=== PATIENT | female | born 1940 | race Two or more races ===

== ENCOUNTER 2024-05-07 09:23 | Outpatient (AMB) | payer OTHER, MEDICAID, SELFPAY ==
--- NOTE | 2024-05-07 09:39 | ORTHONT_ITS ---
Vital signs 05/07/24 09:47 Height 1.55 m Height Method Stated Weight 70.477 kg Weight Measurement Method Standing Scale BMI 29.3 BP 176/82 H Blood Pressure Source Automatic Cuff Blood Pressure Location Left Upper Arm Position Sitting Respiration 18 Pulse 54 L Pulse Source Monitor Temp 98.0 F Temp Source Temporal Artery Scan Pulse Oximetry (%) 98 Oxygen Delivery Method Room Air Med/Allergies Allergies & Medications Allergies No Known Allergies Allergy (Verified 04/01/24 08:10) Subjective Visit Visit for: follow up visit and knee Immunization / Flu Flu Vaccine in the Last 12 Months: Yes Date of most recent flu vaccination: 03/29/24 Flu Vaccine Exclusion Criteria: Already Received History of Present Illness Chief complaint: PT HERE IN OFFICE FOR 3 MONTH FOLLOW UP PT FELL 2 WEEKS AGO Date of injury / onset of symptoms: 2 WEEKS AGO PT FELL Patient is a 83yo female with bialteral leg and knee pain. There is associated numbness and tingling. It starts in the thigh and goes down her legs. She does walk hunched over according to her. She had an injection 3 months ago and reports that it worked quite well. She would like a repeat one today of both knees Personal History Occupation: RETIRED Red flag PMH: none Pain Pain level (0-10): 5 Pain duration: CONSTANT Pain location: inside (medial), outside (lateral), anterior and posterior Pain quality: burning Pain timing: increases with activity Associated signs & symptoms: weakness Ambulatory data Ambulatory device: none Treatments Improvement with previous injections: No Improvement with PT: No Improvement with NSAIDS: no Review of Systems Review of Systems: All systems negative unless otherwise noted in HPI. Exam Exam Patient is in no acute distress and is cooperative with the examination today. Breathing is nonlabored. In no respiratory distress. Bilateral extremities were evaluated and demonstrates sensation intact to light touch. Palpable pedal pulses are present. No significant edema is present. Bilateral hips were examined. The patient has no pain with log roll of the hips. Internal rotation to 30 degrees and external rotation to 30 degrees is painless. Negative FADIR. The left knee was examined. The left knee is in varus alignment. Range of motion from 0-115 degrees. Knee is stable to varus and valgus as well as AP translation with <5mm. Patient has a negative McMurrays. There is no pain with patell ofemoral compression and no crepitus noted. The knee is tender to palpation medially. The right knee was also examined. The right knee is in neutral alignment. Range of motion from 0-120 degrees. Knee is stable to varus and valgus as well as AP translation with <5mm. Patient has a negative McMurrays. There is no pain with patellofemoral compression and no crepitus noted. The knee is tender to palpation medially Weightbearing [facility] from [facility] reviewed. This demonstrates bilateral joint space narrowing of moderate severity. I also reviewed the MRI from [place] imaging. This demonstrates a pars defect as well as foraminal stenosis at L5-S1. Assessment and Plan Problem List (1) Spinal stenosis: Status: Acute (2) Bilateral primary osteoarthritis of knee: Status: Acute Plan: Patient is a pleasant 83-year-old female with bilateral knee pain and bilateral knee arthritis. It is of moderate severity. A lot of her pain does appear to be radicular in nature as well as it starts near the groin area and goes all the way down into her toes. She did get great relief with the last knee injections. We will thus recommend bilateral knee injections today. Recommend knee cortisone injections as patient would like to proceed with conservative treatment at this time. The risks and benefits of the procedure were reviewed with the patient and patient gave verbal consent to continue with the procedure. Procedure: performed by Dr. Spain Using sterile technique the Bilateral knees were thoroughly prepped with alcohol, and approximately 1 cc of Kenalog 40 mg/mL and 4 cc of 1% lidocaine was injected into each knee without resistance into the medial tibial femoral joint space. The patient tolerated the procedure. Advanced Care Planning Discussion Advance care planning discussed with:: patient Office Procedures GNS Level of Care Nursing/Assessment Patient Status: Established Patient Nursing Assessment/Reassesment: BP Monitoring, Medication Reconciliation, Update PMH in EMR and Vital Signs Coordination of Care: Complex Care and Chronic Disease 1-5, Consent,records obtained, informed consent, Lab and Imaging orders and Results/Orders obtained Special Needs: Language special needs Established Patient Charge Established Patient Point Assignment: 95 Established Patient Point Charge: EP Level 3 (80-115) Surgical Proc/IM SQ injection Major Surgical Procedure: Yes (BILATERAL KNEE INJECTION ) Medication Given Medication Given Medication Given: Yes Documented Dose Given: 8 Route: Infiitration Medication Given Medication Given Medication Given: Yes Documented Dose Given: 2 Office Meds Xylocaine 10 mg/mL (1 %) injection solution Performing Provider: Willie Spain MD Performing Location: [facility] Administered by: Willie Spain MD on 05/07/24 10:35 Dose Route Admin Location Dispensed Lot Number Expiration Date [facility] Attending Pathologist 40 mL Infiltration 40 mL [id number] [employer] triamcinolone acetonide 40 mg/mL suspension for injection Performing Provider: Willie Spain MD Performing Location: [facility] Administered by: Willie Spain MD on 05/07/24 10:35 Dose Route Admin Location Dispensed Lot Number Expiration Date [facility] Attending Pathologist 80 mg intra-articular 2 mL [id number] [employer] Past Medical History Past Medical History Have you ever been diagnosed with any of the following: Neurological Problems Cerebrovascular Accident (CVA): Yes (2021) Transient Ischemic Attacks (TIA): Yes (2021) Seizures: No Cardiology Problems Congestive Heart Failure: No Edema: No Hypertension: Yes Varicose Veins: Yes Respiratory Problems Chronic Obstructive Pulmonary Disease (COPD): No Smoking: No Smoking Cessation Counseling: No Smoking Exposure: No Tobacco Use: No Stomache/Intestinal Problems Hepatitis: No Gastroesophageal Reflux Disease: Yes Genital/Urinary Problems Renal Disease: No Reproductive Problems Breast Cancer: Yes (RIGHT RADICAL MASTECTOMY) Previous Pregnancies: Yes (X7) Musculoskeletal Problems Arthritis: Yes Head,Eye,Nose,Throat Problems Cataracts: Yes (stephan) Endocrine Problems Diabetes Mellitus Type 1: No Diabetes Mellitus Type 2: No Psychologic Problems Depression: Yes Other Problems Hospitalization: Yes Shingles: No Falls: No Blood Transfusions: Yes Blood Transfusion Reaction: No Anesthesia Reactions: No Organ Transplant: No Chemotherapy: Yes (1986) MRSA: No Chicken Pox: Yes Measles: Yes Cancer: Yes Surgical History Hysterectomy: Yes
[2024-05-07 09:47] VITALS: BP 176/82; PULSE 54; RESP 18; TEMP 36.7; O2SAT 98; BMI 29.3
== END 2024-05-07 10:09 | disposition home or self-care (01) ==
PROVIDERS: PCP Internal Medicine; Referring Provider Internal Medicine; Supervising Provider Orthopaedic Surgery Adult Reconstructive Orthopaedic Surgery; Visit Provider Orthopaedic Surgery Adult Reconstructive Orthopaedic Surgery
DX: M17.0 Bilateral primary osteoarthritis of knee (principal); M25.562 Pain in left knee; M25.561 Pain in right knee; M48.07 Spinal stenosis, lumbosacral region; I10 Essential (primary) hypertension; Z86.73 Personal history of transient ischemic attack (TIA), and cerebral infarction without residual deficits
CPT/HCPCS: 20610; 99213; J3301; J3490; G0463

== ENCOUNTER 2024-07-20 08:08 | Outpatient (AMB) | payer OTHER, MEDICAID, SELFPAY ==
[2024-07-20 08:24] VITALS: BP 184/81; PULSE 70; RESP 18; TEMP 36.3; O2SAT 97; BMI 29.7
--- NOTE | 2024-07-20 08:24 | PD.ORTHCLVIS ---
Vital signs 07/20/24 08:24 Height 1.55 m Height Method Stated Weight 71.384 kg Weight Measurement Method Standing Scale BMI 29.7 BP 184/81 H Blood Pressure Source Automatic Cuff Blood Pressure Location Right Upper Arm Position Sitting Respiration 18 Pulse 70 Pulse Source Monitor Temp 97.3 F Temp Source Temporal Artery Scan Pulse Oximetry (%) 97 Oxygen Delivery Method Room Air Med/Allergies Allergies & Medications Allergies No Known Allergies Allergy (Verified 07/20/24 08:24) Medication Reconciliation chlorthalidone 25 mg tablet 25 mg PO QDAY 12/12/23 [History Confirmed 07/20/24] duloxetine 20 mg capsule,delayed release 20 mg PO HS 12/12/23 [History Confirmed 07/20/24] lisinopril 30 mg tablet 30 mg PO BID 12/12/23 [History Confirmed 07/20/24] metoprolol succinate 50 mg tablet,extended release 24 hr 50 mg PO QDAY Hypertension 12/12/23 [History Confirmed 07/20/24] aspirin 81 mg tablet 81 mg PO QDAY 03/04/24 [History Confirmed 07/20/24] Held on 04/01/24. Instructions: Resume on 04/04/24. docusate sodium 100 mg capsule (Colace) 100 mg PO BID #40 caps 04/01/24 [Rx Confirmed 07/20/24] hydrocodone 5 mg-acetaminophen 325 mg tablet 1 tab PO Q6H PRN pain (scale score 7-10) #15 tabs 04/01/24 [Rx Confirmed 07/20/24] ibuprofen 600 mg tablet 600 mg PO Q8H PRN pain (scale score 4-6) #15 tabs 04/01/24 [Rx Confirmed 07/20/24] Exam Exam Patient is in no acute distress and is cooperative with the examination today. Breathing is nonlabored. In no respiratory distress. Bilateral extremities were evaluated and demonstrates sensation intact to light touch. Palpable pedal pulses are present. No significant edema is present. Bilateral hips were examined. The patient has no pain with log roll of the hips. Internal rotation to 30 degrees and external rotation to 30 degrees is painless. Negative FADIR. The left knee was examined. The left knee is in varus alignment. Range of motion from 0-115 degrees. Knee is stable to varus and valgus as well as AP translation with <5mm. Patient has a negative McMurrays. There is no pain with patellofemoral compression and no crepitus noted. The knee is tender to palpation medially. The right knee was also examined. The right knee is in neutral alignment. Range of motion from 0-120 degrees. Knee is stable to varus and valgus as well as AP translation with <5mm. Patient has a negative McMurrays. There is no pain with patellofemoral compression and no crepitus noted. The knee is tender to palpation medially Weightbearing x-rays from [facility] imaging reviewed. This demonstrates bilateral joint space narrowing of moderate severity. I also reviewed the MRI from [facility] imaging. This demonstrates a pars defect as well as foraminal stenosis at L5-S1. Assessment and Plan Problem List (1) Spinal stenosis: Status: Acute (2) Bilateral primary osteoarthritis of knee: Status: Acute Plan: Patient is a pleasant 83-year-old female with bilateral knee pain and bilateral knee arthritis. It is of moderate severity. She did not receive relief with the last injections. We will get repeat x-rays and discuss different treatment options. It seems like Her spine doctor wants her to get her knee surgery first. I will get new weightbearing films as I am not sure if she has not previously as it looks nonweightbearing. Advanced Care Planning Discussion Advance care planning discussed with:: patient Office Procedures GNS Level of Care Nursing/Assessment Patient Status: Established Patient Nursing Assessment/Reassesment: Medication Reconciliation, Update PMH in EMR and Vital Signs Coordination of Care: Complex Care and Chronic Disease 1-5, Education Complex Pt/Fam, Consent,records obtained, informed consent, Results/Orders obtained and Staff clarify orders Special Needs: Language special needs Established Patient Charge Established Patient Point Assignment: 95 Established Patient Point Charge: EP Level 3 (80-115) MA Intake Visit Data Collection New Patient or Established: Established Patient (seen at [facility] within 3 years) Reason for Visit:: F/U ON KNEE PAIN Seen by Clinical Staff ONLY (RN/MA): No Verbal consent obtained for Telemed visit?: No Instructional Services Specialist Required: No PCP or OBGYN visit in last 3 months: Yes Hx Now: No Do You Feel Safe at Home: Yes Authorities Contacted: N/A Questionairres Past Medical History Past Medical History Have you ever been diagnosed with any of the following: Neurological Problems Cerebrovascular Accident (CVA): Yes (2021) Transient Ischemic Attacks (TIA): Yes (2021) Seizures: No Cardiology Problems Congestive Heart Failure: No Edema: No Hypertension: Yes Varicose Veins: Yes Respiratory Problems Chronic Obstructive Pulmonary Disease (COPD): No Smoking: No Smoking Cessation Counseling: No Smoking Exposure: No Tobacco Use: No Stomache/Intestinal Problems Hepatitis: No Gastroesophageal Reflux Disease: Yes Genital/Urinary Problems Renal Disease: No Reproductive Problems Breast Cancer: Yes (RIGHT RADICAL MASTECTOMY) Previous Pregnancies: Yes (X7) Musculoskeletal Problems Arthritis: Yes Head,Eye,Nose,Throat Problems Cataracts: Yes (stephan) Endocrine Problems Diabetes Mellitus Type 1: No Diabetes Mellitus Type 2: No Psychologic Problems Depression: Yes Other Problems Hospitalization: Yes Shingles: No Falls: No Blood Transfusions: Yes Blood Transfusion Reaction: No Anesthesia Reactions: No Organ Transplant: No Chemotherapy: Yes (1986) MRSA: No Chicken Pox: Yes Measles: Yes Cancer: Yes Surgical History Hysterectomy: Yes Subjective Visit Visit for: follow up visit and knee Immunization / Flu Flu Vaccine in the Last 12 Months: No Flu Vaccine Exclusion Criteria: No Exclusion Criteria History of Present Illness Chief complaint: RIGHT KNEE PAIN Patient is a 83-year-old female with bilateral knee pain worse on the right. She has had multiple injections in the past. They initially worked but the last injections did not work. She went to see a spine surgeon for her radicular pain. The spine surgeon said that Needs to get her knee Surgery done first. I do not think the x-rays are weightbearing even though she insists on it. We will get repeat imaging. On the previous x-rays there are moderate arthritis Personal History Additional comments: SINCE LAST VISIT PATIENT HAS FALLEN THREE TIMES Pain Pain level (0-10): 6 Pain duration: CONSTANT Pain location: inside (medial), outside (lateral) and anterior Pain quality: sharp Pain timing: increases with activity Associated signs & symptoms: numbness, weakness and stiffness Ambulatory data Ambulatory device: none Treatments Improvement with previous injections: No Improvement with PT: No Improvement with NSAIDS: no Review of Systems Review of Systems: All systems negative unless otherwise noted in HPI.
--- NOTE | 2024-07-20 08:50 | XR_ITS ---
Examination: Bilateral AP knees Standing right lateral knee left lateral knee 2 views Bilateral axial knees single view Technique: Bilateral AP knees standing single view, bilateral PA knees standing flexion single view Standing right lateral knee left lateral knee 2 views Bilateral axial knees single view total 5 views Exam date and time: July 20, 2024 0904 hrs. Indications: Chronic bilateral knee pain Findings: Severe osteopenia Advanced right knee tricompartment osteoarthritis, most severe narrowing lateral joint space No fracture Moderate left knee tricompartment osteoarthritis, most pronounced narrowing medial joint space No fracture Impression: Advanced right knee tricompartment osteoarthritis Moderate left knee tricompartment osteoarthritis
== END 2024-07-20 08:52 | disposition home or self-care (01) ==
LOC: HODSRG 08:08
PROVIDERS: PCP Internal Medicine; Referring Provider Internal Medicine; Supervising Provider Orthopaedic Surgery Adult Reconstructive Orthopaedic Surgery; Visit Provider Orthopaedic Surgery Adult Reconstructive Orthopaedic Surgery
DX: M48.07 Spinal stenosis, lumbosacral region (principal); M17.0 Bilateral primary osteoarthritis of knee; M25.562 Pain in left knee; M25.561 Pain in right knee; I10 Essential (primary) hypertension; Z86.73 Personal history of transient ischemic attack (TIA), and cerebral infarction without residual deficits
CPT/HCPCS: 73564; 99213; G0463

== ENCOUNTER 2024-09-02 10:09 | Outpatient (AMB) | payer OTHER, MEDICAID, SELFPAY ==
[2024-09-02 10:29] VITALS: BP 175/76; PULSE 68; RESP 19; TEMP 36.1; O2SAT 95; BMI 29.5
--- NOTE | 2024-09-02 10:29 | ORTHONT_ITS ---
Vital signs 09/02/24 10:29 Height 1.55 m Height Method Stated Weight 71.016 kg Weight Measurement Method Standing Scale BMI 29.5 BP 175/76 H Blood Pressure Source Automatic Cuff Blood Pressure Location Right Upper Arm Position Sitting Respiration 19 Pulse 68 Pulse Source Monitor Temp 97.0 F Temp Source Temporal Artery Scan Pulse Oximetry (%) 95 Oxygen Delivery Method Room Air Med/Allergies Allergies & Medications Allergies No Known Allergies Allergy (Verified 09/02/24 10:30) Medication Reconciliation chlorthalidone 25 mg tablet 25 mg PO QDAY 12/12/23 [History Confirmed 09/02/24] duloxetine 20 mg capsule,delayed release 20 mg PO HS 12/12/23 [History Confirmed 09/02/24] lisinopril 30 mg tablet 30 mg PO BID 12/12/23 [History Confirmed 09/02/24] metoprolol succinate 50 mg tablet,extended release 24 hr 50 mg PO QDAY Hypertension 12/12/23 [History Confirmed 09/02/24] aspirin 81 mg tablet 81 mg PO QDAY 03/04/24 [History Confirmed 09/02/24] Held on 04/01/24. Instructions: Resume on 04/04/24. docusate sodium 100 mg capsule (Colace) 100 mg PO BID #40 caps 04/01/24 [Rx Confirmed 09/02/24] hydrocodone 5 mg-acetaminophen 325 mg tablet 1 tab PO Q6H PRN pain (scale score 7-10) #15 tabs 04/01/24 [Rx Confirmed 09/02/24] ibuprofen 600 mg tablet 600 mg PO Q8H PRN pain (scale score 4-6) #15 tabs 04/01/24 [Rx Confirmed 09/02/24] Exam Exam Patient is in no acute distress and is cooperative with the examination today. Breathing is nonlabored. In no respiratory distress. Bilateral extremities were evaluated and demonstrates sensation intact to light touch. Palpable pedal pulses are present. No significant edema is present. Bilateral hips were examined. The patient has no pain with log roll of the hips. Internal rotation to 30 degrees and external rotation to 30 degrees is painless. Negative FADIR. The left knee was examined. The left knee is in varus alignment. Range of motion from 0-115 degrees. Knee is stable to varus and valgus as well as AP translation with <5mm. Patient has a negative McMurrays. There is no pain with patellofemoral compression and no crepitus noted. The knee is tender to palpati on medially. The right knee was also examined. The right knee is in neutral alignment. Range of motion from 0-120 degrees. Knee is stable to varus and valgus as well as AP translation with <5mm. Patient has a negative McMurrays. There is no pain with patellofemoral compression and no crepitus noted. The knee is tender to palpation medially Weightbearing x-rays from [facility] imaging reviewed. This demonstrates bilateral joint space narrowing of moderate severity. There is complete obliteration of the lateral joint space Assessment and Plan Problem List (1) Spinal stenosis: Status: Acute (2) Bilateral primary osteoarthritis of knee: Status: Acute Plan: Patient is a pleasant 83-year-old female with bilateral knee pain and bilateral knee arthritis. She does have complete obliteration of the lateral joint space. I discussed with her there are different treatment options and she has failed conservative treatment. Some of the pain the possibly be coming from the spine but she did get good relief initially with a knee injection. We recommend either total knee replacement or continued conservative treatment. She Reports that the pain is affecting her quality life and wants a total knee replacement. I discussed that is a personal decision. He had a total knee replacement at age and that she reports she is miserable and wants to get it replaced The nature and purpose of the total knee replacement, alternative method(s) of treatment, the material risks involved, and the possibility of complications were fully explained to the patient. The patient does NOT have any of the following contraindications to TKA: - Active infection of the knee joint, OR - Active systemic bacteremia, OR - Active skin infection or open wound at surgical site, OR - Neuropathic arthritis, OR - Severe, rapidly progressive neurological disease, OR - Severe medical condition that makes risks of surgery outweigh the potential benefit The patient was told the most common risks and complications associated with a total knee replacement include, but are not limited to: blood clots in the leg, fatal pulmonary embolism, dislocation of the prosthesis, intraoperative and postoperative fractures of the femur or tibia, infection, failure of the prosthesis or grafting materials, complications from anesthesia, reactions to blood transfusions, postoperative leg length inequality, instability of the knee replacement, nerve damage or injury, vascular injury, delayed wound healing, infection, other injury or even . In addition, there are risks associated with anesthesia given during this operation. Also, the patient was told that after undergoing a total knee replacement there may still be persistent pain or disability. The patient was informed that the success of this operation in part depends upon the mechanical devices which are going to be implanted and that these devices can fail or malfunction, and may need to be repaired or replaced and there are no guarantees as to the longevity of this device or its parts and that it or its parts could fail prematurely. The patient was also notified that during the course of surgery, there may be a need to use bone graft from donors, and that any bone graft used will be carefully screened for communicable diseases, including AIDS, hepatitis, Lb-Creutzfeldt, or other diseases, but despite the screening procedures, there is a small chance that they could contract one of these diseases. Finally, the patient was asked to follow completely and fully with all advice and recommended treatments, and that recovery and ultimate outcome are affected by their compliance with recommended treatment. We discussed the risks, benefits and treatment alternatives, and the patient is interested in proceeding with surgery. We will try to set this up as expeditiously as possible. Advanced Care Planning Discussion Advance care planning discussed with:: patient Office Procedures GNS Level of Care Nursing/Assessment Patient Status: Established Patient Nursing Assessment/Reassesment: Medication Reconciliation, Update PMH in EMR and Vital Signs Coordination of Care: Complex Care and Chronic Disease 1-5, Education Complex Pt/Fam, Consent,records obtained, informed consent, Results/Orders obtained and Staff clarify orders Established Patient Charge Established Patient Point Assignment: 95 Established Patient Point Charge: EP Level 3 (80-115) MA Intake Visit Data Collection New Patient or Established: Established Patient (seen at [facility] within 3 years) Reason for Visit:: KNEE PAIN Seen by Clinical Staff ONLY (RN/MA): No Verbal consent obtained for Telemed visit?: No PCP or OBGYN visit in last 3 months: Yes Hx Now: No Do You Feel Safe at Home: Yes Authorities Contacted: N/A Questionairres Past Medical History Past Medical History Have you ever been diagnosed with any of the following: Neurological Problems Cerebrovascular Accident (CVA): Yes (2021) Transient Ischemic Attacks (TIA): Yes (2021) Seizures: No Cardiology Problems Congestive Heart Failure: No Edema: No Hypertension: Yes Varicose Veins: Yes Respiratory Problems Chronic Obstructive Pulmonary Disease (COPD): No Smoking: No Smoking Cessation Counseling: No Smoking Exposure: No Tobacco Use: No Stomache/Intestinal Problems Hepatitis: No Gastroesophageal Reflux Disease: Yes Genital/Urinary Problems Renal Disease: No Reproductive Problems Breast Cancer: Yes (RIGHT RADICAL MASTECTOMY) Previous Pregnancies: Yes (X7) Musculoskeletal Problems Arthritis: Yes Head,Eye,Nose,Throat Problems Cataracts: Yes (stephan) Endocrine Problems Diabetes Mellitus Type 1: No Diabetes Mellitus Type 2: No Psychologic Problems Depression: Yes Other Problems Hospitalization: Yes Shingles: No Falls: No Blood Transfusions: Yes Blood Transfusion Reaction: No Anesthesia Reactions: No Organ Transplant: No Chemotherapy: Yes (1986) MRSA: No Chicken Pox: Yes Measles: Yes Cancer: Yes Surgical History Hysterectomy: Yes Subjective Visit Visit for: follow up visit Immunization / Flu Flu Vaccine in the Last 12 Months: No Flu Vaccine Exclusion Criteria: No Exclusion Criteria History of Present Illness Chief complaint: RIGHT KNEE PAIN Patient is a 83-year-old female with bilateral knee pain worse on the right. She has had multiple injections in the past. They initially worked but the last injections did not work. She went to see a spine surgeon for her radicular pain. The spine surgeon said that Needs to get her knee Surgery done first. I do not think the x-rays are weightbearing even though she insists on it. We obtained new x-rays and there is [id number] arthritis of the lateral joint space. The patient is still unsure if she wants surgery Personal History Additional comments: SINCE LAST VISIT PATIENT HAS FALLEN THREE TIMES Pain Pain level (0-10): 7 Pain duration: ALL DAY Pain location: inside (medial) and anterior Pain quality: sharp, dull and aching Pain timing: increases with activity Associated signs & symptoms: numbness, weakness and stiffness Ambulatory data Ambulatory device: none Treatments Improvement with previous injections: No Improvement with PT: No Improvement with NSAIDS: no Review of Systems Review of Systems: All systems negative unless otherwise noted in HPI.
== END 2024-09-02 11:02 | disposition home or self-care (01) ==
PROVIDERS: PCP Internal Medicine; Referring Provider Internal Medicine; Supervising Provider Orthopaedic Surgery Adult Reconstructive Orthopaedic Surgery; Visit Provider Orthopaedic Surgery Adult Reconstructive Orthopaedic Surgery
DX: M25.562 Pain in left knee (principal); M25.561 Pain in right knee; M17.0 Bilateral primary osteoarthritis of knee; M48.00 Spinal stenosis, site unspecified; I10 Essential (primary) hypertension
CPT/HCPCS: 99213; G0463

== ENCOUNTER → 2024-09-30 | Outpatient (CLI) | payer OTHER, MEDICAID, SELFPAY ==
--- NOTE | 2024-09-30 08:00 | XR_ITS ---
Examination: CT right lower extremity, without contrast. 2-D sagittal reconstructions. 2-D coronal reconstructions. 3-D reconstructions. Date and time of exam:September 30, 2024 0747 hours INDICATIONS: Diagnosis unilateral primary osteoarthritis right knee right knee pain 5 years CTDI: vol (mGy):12.6 DLP: (mGycm):843 Technique: Multiple 1.25 mm axial sections of the right lower extremity without intravenous contrast have been obtained. 2-D sagittal and coronal reconstructions have been obtained. 3-D reconstructions have been obtained. Low dose protocols were performed. One or more of the following dose reduction techniques were used; automated exposure control, adjustment of the mA and/or KV according to patient size, use of iterative reconstruction technique. Findings: Prominent osteopenia Mild to moderate narrowing right hip joint No right hip fracture or hip dislocation Significant tricompartment osteoarthritis right knee most severe narrowing lateral joint space and lateral patellofemoral joint IMPRESSION: Significant tricompartment osteoarthritis right knee
== END | disposition home or self-care (01) ==
PROVIDERS: PCP Internal Medicine; Referring Provider Orthopaedic Surgery Adult Reconstructive Orthopaedic Surgery; Visit Provider Orthopaedic Surgery Adult Reconstructive Orthopaedic Surgery
DX: M17.11 Unilateral primary osteoarthritis, right knee (principal)
CPT/HCPCS: 73700

== ENCOUNTER → 2024-09-30 | Outpatient (CLI) | payer OTHER, MEDICAID, SELFPAY ==
[2024-09-30 09:35] LABS: Basophils % (Auto) 1 % (0-2.5); Eosinophils # (Auto) 0.1 Thou/mm3 (0.0-0.5); Eosinophils % (Auto) 2 % (0-10); Hematocrit 32.5 % (36.0-46.0); Hemoglobin 10.9 g/dL (12.0-16.0); Immature Granulocytes % (Auto) 0 % (0-0); Immature Granulocytes Auto 0.01 Thou/mm3 (0.00-0.00); Lymphocytes # (Auto) 1.1 Thou/mm3 (1.0-4.8); Lymphocytes % (Auto) 18 % (10-50); Mean Corpuscular HGB Conc 33.5 g/dl (31.0-37.0); Mean Corpuscular Hemoglobin 30.8 pg (25.0-35.0); Mean Corpuscular Volume 92 fL (80-100); Monocytes # (Auto) 0.4 Thou/mm3 (0.0-0.8); Monocytes % (Auto) 6 % (0-12); Neutrophils # (Auto) 4.2 Thou/mm3 (1.8-7.7); Neutrophils % (Auto) 73 % (37-80); Nucleated Red Blood Cell % 0 /100 WBC (0); Platelet Count 287 Thou/mm3 (140-440); RDW Standard Deviation 40.6 fL (36.4-46.3); Red Blood Count 3.54 Miln/mm3 (4.00-5.20); White Blood Count 5.7 Thou/mm3 (3.6-11.0)
--- NOTE | 2024-09-30 09:38 | EKG_ITS ---
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
[2024-09-30 09:56] LABS: Partial Thromboplastin Time 24.9 Seconds (22.0-36.0); Prothrombin Time 10.9 Seconds (9.0-12.2)
[2024-09-30 10:09] LABS: Glucose Estimated Average 120 mg/dL (80-131); Hemoglobin A1C 5.8 % Hgb (4.8-6.0)
[2024-09-30 10:31] LABS: Alanine Aminotransferase 10 U/L (10-49); Albumin, Serum 4.2 gm/dL (3.4-4.8); Albumin/Globulin Ratio 1.8 (1.2-2.2); Alkaline Phosphatase 70 U/L (46-116); Anion Gap 6 (7-16); Aspartate Amino Transferase 15 U/L (0-34); BUN/Creatinine Ratio 27 Ratio (12-20); Bilirubin,Total 0.6 mg/dL (0.3-1.2); Blood Urea Nitrogen 19 mg/dL (9-23); Calcium 8.8 mg/dL (8.3-10.6); Calcium (Corrected) 8.8 mg/dL (8.5-10.1); Carbon Dioxide 28.2 mMol/L (20.0-31.0); Chloride 103 mMol/L (98-107); Creatinine (Component) 0.7 mg/dL (0.6-1.3); Globulin 2.4 gm/dL (2.3-3.5); Glucose 100 mg/dL (74-106); Osmolality,Calculated 276 (275-295); Potassium 4.7 mMol/L (3.4-5.1); Sodium 137 mMol/L (136-145); Total Protein 6.6 gm/dL (5.7-8.2); eGFR > 60 See Note
== END | disposition home or self-care (01) ==
PROVIDERS: PCP Internal Medicine; Referring Provider Orthopaedic Surgery Adult Reconstructive Orthopaedic Surgery; Visit Provider Orthopaedic Surgery Adult Reconstructive Orthopaedic Surgery
DX: Z01.810 Encounter for preprocedural cardiovascular examination (principal); I10 Essential (primary) hypertension; R73.03 Prediabetes
CPT/HCPCS: 36415; 80053; 83036; 85025; 85610; 85730; 93005

== ENCOUNTER 2024-10-08 10:57 | Outpatient (AMB) | payer OTHER, MEDICAID, SELFPAY ==
--- NOTE | 2024-10-08 11:41 | ORTHONT_ITS ---
Vital signs 10/08/24 11:42 Height 1.55 m Height Method Stated Weight 71.327 kg Weight Measurement Method Standing Scale BMI 29.7 BP 173/72 H Blood Pressure Source Automatic Cuff Blood Pressure Location Left Upper Arm Position Sitting Respiration 19 Pulse 73 Pulse Source Monitor Temp 96.9 F Temp Source Temporal Artery Scan Pulse Oximetry (%) 97 Oxygen Delivery Method Room Air Med/Allergies Allergies & Medications Allergies No Known Allergies Allergy (Verified 10/08/24 11:43) Medication Reconciliation chlorthalidone 25 mg tablet 25 mg PO QDAY 12/12/23 [History Confirmed 10/08/24] duloxetine 20 mg capsule,delayed release 20 mg PO HS 12/12/23 [History Confirmed 10/08/24] lisinopril 30 mg tablet 30 mg PO BID 12/12/23 [History Confirmed 10/08/24] metoprolol succinate 50 mg tablet,extended release 24 hr 50 mg PO QDAY Hypertension 12/12/23 [History Confirmed 10/08/24] aspirin 81 mg tablet 81 mg PO QDAY 03/04/24 [History Confirmed 10/08/24] Held on 04/01/24. Instructions: Resume on 04/04/24. Exam Exam Patient is in no acute distress and is cooperative with the examination today. Breathing is nonlabored. In no respiratory distress. Bilateral extremities were evaluated and demonstrates sensation intact to light touch. Palpable pedal pulses are present. No significant edema is present. Bilateral hips were examined. The patient has no pain with log roll of the hips. Internal rotation to 30 degrees and external rotation to 30 degrees is painless. Negative FADIR. The left knee was examined. The left knee is in varus alignment. Range of motion from 0-115 degrees. Knee is stable to varus and valgus as well as AP translation with <5mm. Patient has a negative McMurrays. There is no pain with patellofemo ral compression and no crepitus noted. The knee is tender to palpation medially. The right knee was also examined. The right knee is in neutral alignment. Range of motion from 0-120 degrees. Knee is stable to varus and valgus as well as AP translation with <5mm. Patient has a negative McMurrays. There is no pain with patellofemoral compression and no crepitus noted. The knee is tender to palpation medially Weightbearing x-rays from [facility] imaging reviewed. This demonstrates bilateral joint space narrowing of moderate severity. There is complete obliteration of the lateral joint space Assessment and Plan Problem List (1) Spinal stenosis: Status: Acute (2) Bilateral primary osteoarthritis of knee: Status: Acute Plan: Patient is a pleasant 83-year-old female with bilateral knee pain and bilateral knee arthritis. She does have complete obliteration of the lateral joint space. I discussed with her there are different treatment options and she has failed conservative treatment. Some of the pain the possibly be coming from the spine but she did get good relief initially with a knee injection. We recommend either total knee replacement or continued conservative treatment. She Reports that the pain is affecting her quality life and wants a total knee replacement. I discussed that is a personal decision. He had a total knee replacement at age and that she reports she is miserable and wants to get it replaced The nature and purpose of the total knee replacement, alternative method(s) of treatment, the material risks involved, and the possibility of complications were fully explained to the patient. The patient does NOT have any of the following contraindications to TKA: - Active infection of the knee joint, OR - Active systemic bacteremia, OR - Active skin infection or open wound at surgical site, OR - Neuropathic arthritis, OR - Severe, rapidly progressive neurological disease, OR - Severe medical condition that makes risks of surgery outweigh the potential benefit The patient was told the most common risks and complications associated with a total knee replacement include, but are not limited to: blood clots in the leg, fatal pulmonary embolism, dislocation of the prosthesis, intraoperative and postoperative fractures of the femur or tibia, infection, failure of the prosthesis or grafting materials, complications from anesthesia, reactions to blood transfusions, postoperative leg length inequality, instability of the knee replacement, nerve damage or injury, vascular injury, delayed wound healing, infection, other injury or even . In addition, there are risks associated with anesthesia given during this operation. Also, the patient was told that after undergoing a total knee replacement there may still be persistent pain or disability. The patient was informed that the success of this operation in part depends upon the mechanical devices which are going to be implanted and that these devices can fail or malfunction, and may need to be repaired or replaced and there are no guarantees as to the longevity of this device or its parts and that it or its parts could fail prematurely. The patient was also notified that during the course of surgery, there may be a need to use bone graft from donors, and that any bone graft used will be carefully screened for communicable diseases, including AIDS, hepatitis, Lb-Creutzfeldt, or other diseases, but despite the screening procedures, there is a small chance that they could contract one of these diseases. Finally, the patient was asked to follow completely and fully with all advice and recommended treatments, and that recovery and ultimate outcome are affected by their compliance with recommended treatment. We discussed the risks, benefits and treatment alternatives, and the patient is interested in proceeding with surgery. We will try to set this up as expeditiously as possible. Advanced Care Planning Discussion Advance care planning discussed with:: patient and child Office Procedures GNS Level of Care Nursing/Assessment Patient Status: Established Patient Nursing Assessment/Reassesment: Medication Reconciliation, Update PMH in EMR and Vital Signs Coordination of Care: Complex Care and Chronic Disease 1-5, Education Complex Pt/Fam, Consent,records obtained, informed consent, Results/Orders obtained and Staff clarify orders Established Patient Charge Established Patient Point Assignment: 95 Established Patient Point Charge: EP Level 3 (80-115) MA Intake Visit Data Collection New Patient or Established: Established Patient (seen at [facility] within 3 years) Reason for Visit:: PRE OP R TKA Seen by Clinical Staff ONLY (RN/MA): No PCP or OBGYN visit in last 3 months: Yes Hx Now: No Do You Feel Safe at Home: Yes Authorities Contacted: N/A Questionairres Past Medical History Past Medical History Have you ever been diagnosed with any of the following: Neurological Problems Cerebrovascular Accident (CVA): Yes (2021) Transient Ischemic Attacks (TIA): Yes (2021) Seizures: No Cardiology Problems Congestive Heart Failure: No Edema: No Hypertension: Yes Varicose Veins: Yes Respiratory Problems Chronic Obstructive Pulmonary Disease (COPD): No Smoking: No Smoking Cessation Counseling: No Smoking Exposure: No Tobacco Use: No Stomache/Intestinal Problems Hepatitis: No Gall Bladder Disease: Yes Gastroesophageal Reflux Disease: Yes Genital/Urinary Problems Renal Disease: No Reproductive Problems Breast Cancer: Yes (RIGHT RADICAL MASTECTOMY) Previous Pregnancies: Yes (X7) Musculoskeletal Problems Arthritis: Yes Head,Eye,Nose,Throat Problems Cataracts: Yes (stephan) Endocrine Problems Diabetes Mellitus Type 1: No Diabetes Mellitus Type 2: No Psychologic Problems Depression: Yes Other Problems Hospitalization: Yes Shingles: No Falls: Yes Blood Transfusions: Yes Blood Transfusion Reaction: No Anesthesia Reactions: No Organ Transplant: No Chemotherapy: Yes (1986) MRSA: No Chicken Pox: Yes Measles: Yes Cancer: Yes Surgical History Hysterectomy: Yes Subjective Visit Visit for: follow up visit and knee Immunization / Flu Flu Vaccine in the Last 12 Months: No Flu Vaccine Exclusion Criteria: No Exclusion Criteria History of Present Illness Chief complaint: RIGHT KNEE PAIN Patient is a 83-year-old female with bilateral knee pain worse on the right. She has had multiple injections in the past. They initially worked but the last injections did not work. She went to see a spine surgeon for her radicular pain. The spine surgeon said that Needs to get her knee Surgery done first. I do not think the x-rays are weightbearing even though she insists on it. We obtained new x-rays and there is [id number] arthritis of the lateral joint space. Personal History Additional comments: SINCE LAST VISIT PATIENT HAS FALLEN THREE TIMES Pain Pain level (0-10): 6 Pain duration: ALL DAY Pain location: inside (medial) and anterior Pain quality: dull and aching Pain timing: increases with activity Associated signs & symptoms: none Ambulatory data Ambulatory device: none Treatments Improvement with previous injections: No Improvement with PT: No Improvement with NSAIDS: no Review of Systems Review of Systems: All systems negative unless otherwise noted in HPI.
[2024-10-08 11:42] VITALS: BP 173/72; PULSE 73; RESP 19; TEMP 36.1; O2SAT 97; BMI 29.7
== END 2024-10-08 12:00 | disposition home or self-care (01) ==
LOC: HODSRG 10:57
PROVIDERS: PCP Internal Medicine; Referring Provider Internal Medicine; Supervising Provider Orthopaedic Surgery Adult Reconstructive Orthopaedic Surgery; Visit Provider Orthopaedic Surgery Adult Reconstructive Orthopaedic Surgery
DX: M17.0 Bilateral primary osteoarthritis of knee (principal); M48.00 Spinal stenosis, site unspecified; M25.562 Pain in left knee; M25.561 Pain in right knee; I10 Essential (primary) hypertension; Z86.73 Personal history of transient ischemic attack (TIA), and cerebral infarction without residual deficits; K21.9 Gastro-esophageal reflux disease without esophagitis
CPT/HCPCS: 99213; G0463

== ENCOUNTER 2024-10-11 08:15 | Day surgery (SDC) | payer OTHER, MEDICAID, SELFPAY ==
[2024-10-08 09:17] VITALS: BMI 30.7
[2024-10-08 10:54] LABS: Basophils # (Auto) 0.1 Thou/mm3 (0.0-0.2); Basophils % (Auto) 1 % (0-2.5); Eosinophils # (Auto) 0.2 Thou/mm3 (0.0-0.5); Eosinophils % (Auto) 4 % (0-10); Immature Granulocytes % (Auto) 0 % (0-0); Immature Granulocytes Auto 0.02 Thou/mm3 (0.00-0.00); Lymphocytes # (Auto) 1.2 Thou/mm3 (1.0-4.8); Lymphocytes % (Auto) 23 % (10-50); Mean Corpuscular HGB Conc 34.4 g/dl (31.0-37.0); Mean Corpuscular Hemoglobin 30.8 pg (25.0-35.0); Mean Corpuscular Volume 90 fL (80-100); Monocytes # (Auto) 0.5 Thou/mm3 (0.0-0.8); Monocytes % (Auto) 8 % (0-12); Neutrophils # (Auto) 3.5 Thou/mm3 (1.8-7.7); Neutrophils % (Auto) 64 % (37-80); Nucleated Red Blood Cell % 0 /100 WBC (0); Platelet Count 282 Thou/mm3 (140-440); RDW Standard Deviation 40.5 fL (36.4-46.3); Red Blood Count 3.57 Miln/mm3 (4.00-5.20); White Blood Count 5.5 Thou/mm3 (3.6-11.0)
[2024-10-08 11:02] LABS: Partial Thromboplastin Time 25.1 Seconds (22.0-36.0); Prothrombin Time 10.7 Seconds (9.0-12.2)
[2024-10-08 11:18] LABS: Alanine Aminotransferase 8 U/L (10-49); Albumin, Serum 4.2 gm/dL (3.4-4.8); Albumin/Globulin Ratio 1.7 (1.2-2.2); Alkaline Phosphatase 74 U/L (46-116); Anion Gap 9 (7-16); Aspartate Amino Transferase 17 U/L (0-34); BUN/Creatinine Ratio 35 Ratio (12-20); Bilirubin,Total 0.4 mg/dL (0.3-1.2); Blood Urea Nitrogen 21 mg/dL (9-23); Calcium 9.1 mg/dL (8.3-10.6); Calcium (Corrected) 9.1 mg/dL (8.5-10.1); Carbon Dioxide 28.4 mMol/L (20.0-31.0); Chloride 99 mMol/L (98-107); Creatinine (Component) 0.6 mg/dL (0.6-1.3); Estimated Creatinine Clearance 61.6 mL/min (>60); Globulin 2.5 gm/dL (2.3-3.5); Glucose 99 mg/dL (74-106); Osmolality,Calculated 274 (275-295); Potassium 4.5 mMol/L (3.4-5.1); Sodium 136 mMol/L (136-145); Total Protein 6.7 gm/dL (5.7-8.2); eGFR > 60 See Note
[2024-10-11] VITALS (19 sets, daily range): BP systolic 119–179; BP diastolic 61–77; PULSE 63–77; RESP 10–20; TEMP 36.2–36.7; O2SAT 93–100; BMI 30.3; BMI 13.0
[2024-10-11] MEDS: RINGERS LACTATED 1000 ML 1,000 ML 20 ML IV (09:49)
[2024-10-11] MEDS: ACETAMINOPHEN 325 MG TABLET 650 MG PO (09:50)
[2024-10-11] MEDS: MELOXICAM 7.5 MG TABLET PO (09:51)
[2024-10-11] MEDS: PREGABALIN 75 MG CAPSULE PO (09:51)
--- NOTE | 2024-10-11 10:30 | SUR.PREOP ---
Patient expressed gratitude for prayer before their procedure.
--- NOTE | 2024-10-11 12:50 | ESOP_ITS ---
Date of Procedure 10/11/24 Pre Op Diagnosis right knee osteoarthritis Post Op Diagnosis right knee osteoarthritis Procedure right total knee replacement sweetie Findings full thickness cartilage loss and osteophytes Procedure Description Indication: The patient is a 83 year old who has a long history of right knee pain. X-rays show degenerative arthritis involving the knee. Over the past several years the patient has had increasing pain, progressive limitation in function. He has failed conservative measures including activity modification, physical therapy, injections, anti-inflammatories, and assistive devices. After a lengthy discussion of the risks and benefits, the patient presents now for total knee replacement. The nature and purpose of the total knee replacement, alternative method(s) of treatment, the material risks involved, and the possibility of complications were fully explained to the patient. The patient was told the most common risks and complications associated with a total knee replacement include, but are not limited to blood clots in the leg, fatal pulmonary embolism, dislocation of the prosthesis, intraoperative and postoperative fractures of the femur or tibia, infection, failure of the prosthesis or grafting materials, complications from anesthesia, reactions to blood transfusions, postoperative leg length inequality, instability of the knee replacement, nerve damage or injury, vascular injury, delayed wound healing, infections, other injury or even . In addition, there are risks associated with anesthesia given during this operation, temporary or permanent numbness on the skin lateral to the incision can be a complication unique to total knee surgery, and kneeling can be painful after knee replacement surgery. Also, the patient was told that after undergoing a total knee replacement there may still be pain or disability. We discussed with the patient that we will be using a robot-assisted technology. We discussed that there is a possibility of converting to manual instrumentation. The patient was informed that the success of this operation in part depends upon the mechanical devices which are going to be implanted and that these devices can fail or malfunction, and may need to be repaired or replaced and there are no guarantees as to the longevity of this device or its part and that it or its parts could fail prematurely. Finally, the patient was asked to follow completely and fully with all advice and recommended treatments, and that recovery and ultimate outcome are affected by their compliance with recommended treatment. Surgical technique: Patient was marked and consented in the pre-operative area. The patient was brought to the operating room and placed on the operating table in a supine position. Prior to positioning, a timeout procedure was performed between the surgeon, the anesthesiologist, and the nursing staff where the patient and the operative side were identified and confirmed. After adequate general anesthetic was obtained, the right lower extremity was prepped and draped in the usual sterile fashion. A weight based dose of Cefazolin were administered within 1 hour prior to incision. The robot was preregistered and calirated before the incision. The extremity was exsanguinated with an esmarch badge and tourniquet inflated to 250mmHg. A midline incision was made. A median parapatellar arthrotomy was made. The patella was subluxed laterally. A medial release was performed to expose the medial tibia. His femoral and tibial pins were placed through an intra incisional manner for both cases. Every effort was made to ensure that the distalmost aspect of the pin was hung in the second cortex. The arrays were then tightened several times to ensure that it was fixed for the remainder of the case. Both femoral and tibial checkpoints were then placed. We then went through the registration process of the bone. We then assessed the knee deformity and attempted to correct it. We also used the robot to aid in judging laxity in both extension and flexion. Final based on laxity and alignment we changed the preoperative assessment to obtain proper proper implant positioning and to correct deformity. Attention was then placed to the tibia. We made a tibial cut using the robot ensuring that both the MCL and the patella tendon were protected with retractors. We then went to the femur and made the posterior cut followed by the anterior cut and the anterior chamfer. The bone was then removed and we made a distal femur cut and a posterior chamfer cut. We verified all cuts. A trial reduction was performed with a size 3 femoral component and a size 3 keeled tibial component. The patella tracked centrally, and no lateral retinacular release was necessary. The trial implants were removed. The arrays, pins, and checkpoints were all removed. We performed a verification that all pins were removed. The cut bone surfaces were lavaged. A size 3 right femoral component, a size 3 keeled tibial component were impacted into position using 2 bags of palacos. The knee was placed in extension until the cement hardened. The knee was felt to be well balanced in the sagittal and coronal plane. The final 3x10 mm cruciate- substituting articular insert was impacted into the tibial tray. The knee was brought out to full extension, flexed up to 120 degrees. It was stable to varus and valgus stress and appropriately balanced in flexion and extension. The wounds were copiously irrigated following deflation of tourniquet. The medial retinaculum was reapproximated with #1 vicryl and quill. The subcutaneous tissues were closed with 0 and 2-0 interrupted Vicryl. The skin was closed with 3-0 Monofilament V loc suture. A sterile dressing was applied. The patient was transferred to a bed and brought to recovery in stable condition. The patient tolerated the procedure well. There were no intraoperative complications. Sponge and needle counts were correct times 2. As the attending surgeon, I attest I was present and performed the entire operation. Grafts/Implants Size 3 CR Femur Size 3 Tibia 10mm poly CS 2 bags of palacos Anesthesia GETA Implants deann Pathology / specimen None Pathology comment: none Estimated Blood Loss 150 Surgeon Willie Spain MD Surgical Staff Operation Date: 10/11/24 12:15 Case Staff Anesthesiologist: Shiva Mckinnon RNfleet maintenance foreman: Carina Munoz
--- NOTE | 2024-10-11 12:54 | XR_ITS ---
Examination: Right knee 2 views Technique one AP lateral right knee 2 views Date and time: October 11, 2024 1327 hours INDICATIONS: Postop knee replacement FINDINGS: Total right knee arthroplasty. Satisfactory alignment. No fracture IMPRESSION: Total right knee arthroplasty with satisfactory alignment
--- NOTE | 2024-10-11 13:19 | SUR.PHASEI ---
1319: Pt. wakes to name, then drifts back to sleep, vitals stable, breathing unlabored, no signs of distress, dressing to right knee CDI, no active bleed noted, bilateral dorsalis pedis pulses strong and regular, cap refill to bilateral feet less than 3 seconds, report received from MD Pratibha Ling RN.
[2024-10-11] MEDS: fentaNYL CIT INJ 50 mCg/ML AMP 2ML IVP ×2 (13:56→15:22)
[2024-10-11] MEDS: HYDROmorphone INJ 2 MG/ML VIAL 0.4 MG IVP (14:44)
[2024-10-11] MEDS: ACETAMINOPHEN IVPB 1,000 MG/100 ML VIAL 250 MG IV (16:18)
--- NOTE | 2024-10-11 16:30 | SUR.PHASEII ---
pt awake, alert, able to follow commands, breathing unlabored, dressing to right lower extremity clean, dry, and intact, report from Elaine WHITEHEAD
[2024-10-11] MEDS: ONDANSETRON INJ 2 MG/ML INJ 2 ML 4 MG IVP (16:58)
--- NOTE | 2024-10-11 17:00 | SUR.PHASEII ---
pt dizzy when trying to sit up for physical therapy
--- NOTE | 2024-10-11 17:47 | SUR.PHASEII ---
pt sleepy with eyes closed, daughter at bedside
--- NOTE | 2024-10-11 18:45 | SUR.PHASEII ---
pt awake, alert, able to follow commands, breathing unlabored, dressing to right lower extremity clean, dry, and intact, VS stable, pt on room air, pt able to transfer to wheelchair without dizziness, pt able to tolerate oral fluids without difficulty swallowing or n/v, discharge instructions given by previous nurse Elaine WHITEHEAD- teaching reinforced with pt and daughter who verbalize understanding, pt discharged via wheelchair with all belongings and copies of discharge paperwork.
--- NOTE | 2024-10-14 15:12 | PD.ANESPROG ---
Documentation for date of: 10/14/24 POST ANESTHESIA NOTE: Patient had GETA and R adductor canal block for R TKA on 10/11/24. Intra-op, spinal was attempted but aborted after multiple attempts failed to reach intrathecal space given her scoliosis. I just called her number, answered by her daughter who was present with her at the time of surgery, and she reported patient having nausea still but limited solid intake but she endorsed she is doing well drinking liquids and she denied post op vomiting. She also reported patient taking Oxycodone post op. She also reported patient feeling dizzy only when she stands up. She denied patient having post op headache. She didn't report any other issues and reported she is otherwise doing well. I educated her sometimes nausea from anesthesia can last multiple days post op but it's less likely in elderly and could also be from medications especially narcotics. I encouraged her to continue drinking fluids to stay hydrated as her dizziness could be from dehydration. She understood and had no further questions for me and was thankful. Shiva Mckinnon MD Anesthesia Progress Note Progress Note Most recent Vital Signs: Last Vital Signs Temp 97.9 F 10/11/24 18:30 Pulse 73 10/11/24 18:30 Resp 16 10/11/24 18:30 BP 149/77 H 10/11/24 18:30 Pulse Ox 98 10/11/24 18:30 O2 Flow Rate 2 10/11/24 15:30
== END 2024-10-11 18:45 | disposition home health service (06) ==
PROVIDERS: Anesthesiology; PCP Internal Medicine; Referring Provider Orthopaedic Surgery Adult Reconstructive Orthopaedic Surgery; Visit Provider Orthopaedic Surgery Adult Reconstructive Orthopaedic Surgery
PROC: (CPT 27447; principal; 2024-10-11 12:00)
DX: M17.11 Unilateral primary osteoarthritis, right knee (principal); M25.761 Osteophyte, right knee
CPT/HCPCS: 27447; 20985; 36415; 73560; 80053; 85025; 85610; 85730; 97162; A4217; C1713; C1776; J0131; J0690; J1100; J1171; J2250; J2405; J2704; J2795; J3010; J3490; J7030; J7120; J7999; A4648; A4649; A9270; J1805

== ENCOUNTER 2024-10-26 10:10 | Outpatient (AMB) | payer OTHER, MEDICAID, SELFPAY ==
[2024-10-26 10:28] VITALS: BP 172/72; PULSE 61; RESP 18; TEMP 36.1; O2SAT 95; BMI 30.5
--- NOTE | 2024-10-26 10:28 | PD.ORTHCLVIS ---
Vital signs 10/26/24 10:28 Height 1.52 m Height Method Stated Weight 70.534 kg Weight Measurement Method Standing Scale BMI 30.5 BP 172/72 H Blood Pressure Source Automatic Cuff Blood Pressure Location Right Upper Arm Position Sitting Respiration 18 Pulse 61 Pulse Source Monitor Temp 97.0 F Temp Source Temporal Artery Scan Pulse Oximetry (%) 95 Oxygen Delivery Method Room Air Med/Allergies Allergies & Medications Allergies No Known Allergies Allergy (Verified 10/26/24 10:30) Medication Reconciliation chlorthalidone 25 mg tablet 25 mg PO QDAY 12/12/23 [History Confirmed 10/26/24] duloxetine 20 mg capsule,delayed release 20 mg PO HS 12/12/23 [History Confirmed 10/26/24] lisinopril 30 mg tablet 30 mg PO BID 12/12/23 [History Confirmed 10/26/24] metoprolol succinate 50 mg tablet,extended release 24 hr 50 mg PO QDAY Hypertension 12/12/23 [History Confirmed 10/26/24] aspirin 81 mg tablet 81 mg PO QDAY 03/04/24 [History Confirmed 10/26/24] acetaminophen 500 mg tablet (Acetaminophen Extra Strength) 1,000 mg (2 x 500 mg) PO Q6H PRN pain #90 tabs 10/11/24 [Rx Confirmed 10/26/24] aspirin 81 mg tablet,delayed release 81 mg PO BID #60 tabs 10/11/24 [Rx Confirmed 10/26/24] doxycycline hyclate 100 mg tablet 100 mg PO BID #14 tabs 10/11/24 [Rx Confirmed 10/26/24] gabapentin 300 mg capsule 300 mg PO .qhs #30 caps 10/11/24 [Rx Confirmed 10/26/24] sennosides 8.6 mg-docusate sodium 50 mg tablet (Senna-S) 1 tab-cap PO QDAY #30 tabs 10/11/24 [Rx Confirmed 10/26/24] ondansetron 4 mg disintegrating tablet 4 mg PO Q6H PRN nausea and vomiting #10 tabs 10/14/24 [Rx Confirmed 10/26/24] oxycodone 5 mg tablet 5 mg PO Q6H PRN pain #28 tabs 10/21/24 [Rx Confirmed 10/26/24] Exam Exam Patient is in no acute distress and is cooperative with the examination today. Breathing is nonlabored. In no respiratory distress. Bilateral extremities were evaluated and demonstrates sensation intact to light touch. Palpable pedal pulses are present. No significant edema is present. Bilateral hips were examined. The patient has no pain with log roll of the hips. Internal rotation to 30 degrees and external rotation to 30 degrees is painless. Negative FADIR. The left knee was examined. The left knee is in varus alignment. Range of motion from 0-115 degrees. Knee is stable to varus and valgus as well as AP translation with <5mm. Patient has a negative McMurrays. There is no pain with patellofemoral compression and no crepitus noted. The knee is tender to palpation medially. Right knee incision is clean dry and intact. She is walking with a walker Assessment and Plan Problem List (1) Spinal stenosis: Status: Acute (2) Bilateral primary osteoarthritis of knee: Status: Acute Plan: Patient is a pleasant 83-year-old female with bilateral knee pain and bilateral knee arthritis. She does have complete obliteration of the lateral joint space. Her knee looks great status post right total knee replacement. Will see her in 4 weeks with routine x-rays. She should continue work with physical therapy Advanced Care Planning Discussion Advance care planning discussed with:: patient and child Office Procedures GNS Level of Care Nursing/Assessment Patient Status: Established Patient Nursing Assessment/Reassesment: Medication Reconciliation, Update PMH in EMR and Vital Signs Coordination of Care: Complex Care and Chronic Disease 1-5, Education Complex Pt/Fam, Consent,records obtained, informed consent, Lab and Imaging orders, Results/Orders obtained and Staff clarify orders Special Needs: Language special needs Established Patient Charge Established Patient Point Assignment: 110 Established Patient Point Charge: EP Level 3 (80-115) MA Intake Visit Data Collection New Patient or Established: Established Patient (seen at [facility] within 3 years) Reason for Visit:: 2 WEEK POST OP Seen by Clinical Staff ONLY (RN/MA): No Verbal consent obtained for Telemed visit?: No Customer Engagement Specialist Required: No PCP or OBGYN visit in last 3 months: Yes Hx Now: No Do You Feel Safe at Home: Yes Authorities Contacted: N/A Questionairres Past Medical History Past Medical History Have you ever been diagnosed with any of the following: Neurological Problems Cerebrovascular Accident (CVA): Yes (2021) Transient Ischemic Attacks (TIA): Yes (2021) Seizures: No Cardiology Problems Congestive Heart Failure: No Edema: No Hypertension: Yes Varicose Veins: Yes Respiratory Problems Chronic Obstructive Pulmonary Disease (COPD): No Smoking: No Smoking Cessation Counseling: No Smoking Exposure: No Tobacco Use: No Stomache/Intestinal Problems Hepatitis: No Gall Bladder Disease: Yes Gastroesophageal Reflux Disease: Yes Genital/Urinary Problems Renal Disease: No Reproductive Problems Breast Cancer: Yes (RIGHT RADICAL MASTECTOMY) Previous Pregnancies: Yes (X7) Musculoskeletal Problems Arthritis: Yes Head,Eye,Nose,Throat Problems Cataracts: Yes (stephan) Endocrine Problems Diabetes Mellitus Type 1: No Diabetes Mellitus Type 2: No Psychologic Problems Depression: Yes Other Problems Hospitalization: Yes Shingles: No Falls: Yes Blood Transfusions: No Blood Transfusion Reaction: No Anesthesia Reactions: No Organ Transplant: No Chemotherapy: Yes (1986) MRSA: No Chicken Pox: Yes Measles: Yes Cancer: Yes Surgical History Hysterectomy: Yes Subjective Visit Visit for: follow up visit and knee Immunization / Flu Flu Vaccine in the Last 12 Months: No Flu Vaccine Exclusion Criteria: No Exclusion Criteria History of Present Illness Chief complaint: 2 WEEK POST OP RIGHT TKA Date of 1st surgery (if applicable): 10/11/2024 Patient is a 83-year-old female with bilateral knee pain worse on the right. She is 2-week status post right total knee replacement. Personal History Occupation: RETIRED Additional comments: SINCE LAST VISIT PATIENT HAS FALLEN THREE TIMES Pain Pain level (0-10): 10 Pain duration: CONSTANT Pain location: anterior and posterior Pain quality: sharp, dull and aching Pain timing: night Associated signs & symptoms: numbness Ambulatory data Ambulatory device: walker Treatments Improvement with previous injections: No Improvement with PT: No Improvement with NSAIDS: no Review of Systems Review of Systems: All systems negative unless otherwise noted in HPI.
== END 2024-10-26 10:47 | disposition home or self-care (01) ==
LOC: HODSRG 10:10
PROVIDERS: PCP Internal Medicine; Referring Provider Internal Medicine; Supervising Provider Orthopaedic Surgery Adult Reconstructive Orthopaedic Surgery; Visit Provider Orthopaedic Surgery Adult Reconstructive Orthopaedic Surgery
DX: M48.00 Spinal stenosis, site unspecified (principal); M17.0 Bilateral primary osteoarthritis of knee; M25.562 Pain in left knee; M25.561 Pain in right knee; Z96.651 Presence of right artificial knee joint; I10 Essential (primary) hypertension; Z86.73 Personal history of transient ischemic attack (TIA), and cerebral infarction without residual deficits; K21.9 Gastro-esophageal reflux disease without esophagitis
CPT/HCPCS: 99213; G0463

== ENCOUNTER 2024-11-23 10:50 | Outpatient (AMB) | payer OTHER, MEDICAID, SELFPAY ==
[2024-11-23 11:21] VITALS: BP 171/79; PULSE 57; RESP 18; TEMP 36.4; O2SAT 96; BMI 29.5
--- NOTE | 2024-11-23 11:21 | ORTHONT_ITS ---
Vital signs 11/23/24 11:21 Height 1.52 m Height Method Stated Weight 68.266 kg Weight Measurement Method Standing Scale BMI 29.5 BP 171/79 H Blood Pressure Source Automatic Cuff Blood Pressure Location Left Upper Arm Position Sitting Respiration 18 Pulse 57 L Pulse Source Monitor Temp 97.6 F Temp Source Temporal Artery Scan Pulse Oximetry (%) 96 Oxygen Delivery Method Room Air Med/Allergies Allergies & Medications Allergies No Known Allergies Allergy (Verified 11/23/24 11:22) Medication Reconciliation chlorthalidone 25 mg tablet 25 mg PO QDAY 12/12/23 [History Confirmed 11/23/24] duloxetine 20 mg capsule,delayed release 20 mg PO HS 12/12/23 [History Confirmed 11/23/24] lisinopril 30 mg tablet 30 mg PO BID 12/12/23 [History Confirmed 11/23/24] metoprolol succinate 50 mg tablet,extended release 24 hr 50 mg PO QDAY Hypertension 12/12/23 [History Confirmed 11/23/24] aspirin 81 mg tablet 81 mg PO QDAY 03/04/24 [History Confirmed 11/23/24] acetaminophen 500 mg tablet (Acetaminophen Extra Strength) 1,000 mg (2 x 500 mg) PO Q6H PRN pain #90 tabs 10/11/24 [Rx Confirmed 11/23/24] aspirin 81 mg tablet,delayed release 81 mg PO BID #60 tabs 10/11/24 [Rx Confirmed 11/23/24] doxycycline hyclate 100 mg tablet 100 mg PO BID #14 tabs 10/11/24 [Rx Confirmed 11/23/24] gabapentin 300 mg capsule 300 mg PO .qhs #30 caps 10/11/24 [Rx Confirmed 11/23/24] sennosides 8.6 mg-docusate sodium 50 mg tablet (Senna-S) 1 tab-cap PO QDAY #30 tabs 10/11/24 [Rx Confirmed 11/23/24] ondansetron 4 mg disintegrating tablet 4 mg PO Q6H PRN nausea and vomiting #10 tabs 10/14/24 [Rx Confirmed 11/23/24] oxycodone 5 mg tablet 5 mg PO Q6H PRN pain #28 tabs 10/21/24 [Rx Confirmed 11/23/24] oxycodone 5 mg tablet 5 mg PO Q6H PRN pain #28 tabs 11/03/24 [Rx Confirmed 11/23/24] Exam Exam Patient is in no acute distress and is cooperative with the examination today. Breathing is nonlabored. In no respiratory distress. Bilateral extremities were evaluated and demonstrates sensation intact to light touch. Palpable pedal pulses are present. No significant edema is present. Bilateral hips were examined. The patient has no pain with log roll of the hips. Internal rotation to 30 degrees and external rotation to 30 degrees is painless. Negative FADIR. The left knee was examined. The left knee is in varus alignment. Range of motion from 0-115 degrees. Knee is stable to varus and valgus as well as AP translation with <5mm. Patient has a negative McMurrays. There is no pain with patellofemoral compression and no crepitus noted. The knee is tender to palpation medially. Right knee incision is clean dry and intact. Range of motion is She is walking without any assistive device. Assessment and Plan Problem List (1) Spinal stenosis: Status: Acute (2) Bilateral primary osteoarthritis of knee: Status: Acute Plan: Patient is a pleasant 83-year-old female with bilateral knee pain and bilateral knee arthritis. She is s/p R TKA and is doing well. We will see her in 6 weeks. Advanced Care Planning Discussion Advance care planning discussed with:: patient and child Office Procedures GNS Level of Care Nursing/Assessment Patient Status: Established Patient Nursing Assessment/Reassesment: Medication Reconciliation, Update PMH in EMR and Vital Signs Coordination of Care: Complex Care and Chronic Disease 1-5, Education Complex Pt/Fam, Consent,records obtained, informed consent, Results/Orders obtained and Staff clarify orders Established Patient Charge Established Patient Point Assignment: 95 Established Patient Point Charge: EP Level 3 (80-115) MA Intake Visit Data Collection New Patient or Established: Established Patient (seen at [facility] within 3 years) Reason for Visit:: 6 WEEK POST R TKA Seen by Clinical Staff ONLY (RN/MA): No PCP or OBGYN visit in last 3 months: Yes Hx Now: No Do You Feel Safe at Home: Yes Authorities Contacted: N/A Questionairres Past Medical History Past Medical History Have you ever been diagnosed with any of the following: Neurological Problems Cerebrovascular Accident (CVA): Yes (2021) Transient Ischemic Attacks (TIA): Yes (2022) Seizures: No Cardiology Problems Congestive Heart Failure: No Edema: No Hypertension: Yes Varicose Veins: Yes Respiratory Problems Chronic Obstructive Pulmonary Disease (COPD): No Smoking: No Smoking Cessation Counseling: No Smoking Exposure: No Tobacco Use: No Stomache/Intestinal Problems Hepatitis: No Gall Bladder Disease: Yes Gastroesophageal Reflux Disease: Yes Genital/Urinary Problems Renal Disease: No Reproductive Problems Breast Cancer: Yes (RIGHT RADICAL MASTECTOMY) Previous Pregnancies: Yes (X7) Musculoskeletal Problems Arthritis: Yes Head,Eye,Nose,Throat Problems Cataracts: Yes (stephan) Endocrine Problems Diabetes Mellitus Type 1: No Diabetes Mellitus Type 2: No Psychologic Problems Depression: Yes Other Problems Hospitalization: Yes Shingles: No Falls: Yes Blood Transfusions: No Blood Transfusion Reaction: No Anesthesia Reactions: No Organ Transplant: No Chemotherapy: Yes (1986) MRSA: No Chicken Pox: Yes Measles: Yes Cancer: Yes Surgical History Total Knee Replacement: Yes Hysterectomy: Yes Subjective Visit Visit for: follow up visit and knee Immunization / Flu Flu Vaccine in the Last 12 Months: No Flu Vaccine Exclusion Criteria: No Exclusion Criteria History of Present Illness Chief complaint: 2 WEEK POST OP RIGHT TKA Date of 1st surgery (if applicable): 10/11/2024 Patient is a 83-year-old female with bilateral knee pain worse on the right. She is 6-week status post right total knee replacement. Personal History Occupation: RETIRED Additional comments: SINCE LAST VISIT PATIENT HAS FALLEN THREE TIMES Pain Pain level (0-10): 10 Pain duration: CONSTANT Pain location: inside (medial), anterior and posterior Pain quality: sharp, dull and aching Pain timing: night Associated signs & symptoms: numbness Ambulatory data Ambulatory device: walker Treatments Improvement with previous injections: No Improvement with PT: No Improvement with NSAIDS: no Review of Systems Review of Systems: All systems negative unless otherwise noted in HPI.
--- NOTE | 2024-11-23 11:27 | XR_ITS ---
Examination: Bilateral AP knees single view Right knee PA lateral axial 3 views TECHNIQUE: Bilateral AP knees standing single view Right knee PA standing flexion, standing lateral, axial right knee 3 views total 4 views Date and time: November 23, 2024 1150 hours Comparison October 11, 2024 INDICATIONS: Status post knee replacement October 11, 2024 FINDINGS: Significant osteopenia. Total right knee arthroplasty. Satisfactory alignment. No patellar dislocation No fracture Moderate narrowing medial joint space left knee IMPRESSION: Total right knee arthroplasty with satisfactory alignment
== END 2024-11-23 11:29 | disposition home or self-care (01) ==
LOC: HODSRG 10:50
PROVIDERS: PCP Internal Medicine; Referring Provider Internal Medicine; Supervising Provider Orthopaedic Surgery Adult Reconstructive Orthopaedic Surgery; Visit Provider Orthopaedic Surgery Adult Reconstructive Orthopaedic Surgery
DX: M48.00 Spinal stenosis, site unspecified (principal); M17.0 Bilateral primary osteoarthritis of knee; M25.562 Pain in left knee; M25.561 Pain in right knee; Z96.651 Presence of right artificial knee joint; Z86.73 Personal history of transient ischemic attack (TIA), and cerebral infarction without residual deficits; I10 Essential (primary) hypertension; K21.9 Gastro-esophageal reflux disease without esophagitis
CPT/HCPCS: 73564; 99213; G0463

== ENCOUNTER → 2024-12-01 | Outpatient (CLI) | payer OTHER, MEDICAID, SELFPAY ==
--- NOTE | 2024-12-01 09:07 | EKG_ITS ---
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
[2024-12-01 09:31] LABS: Basophils # (Auto) 0.0 Thou/mm3 (0.0-0.2); Basophils % (Auto) 1 % (0-2.5); Eosinophils # (Auto) 0.1 Thou/mm3 (0.0-0.5); Eosinophils % (Auto) 2 % (0-10); Hematocrit 31.5 % (36.0-46.0); Hemoglobin 10.3 g/dL (12.0-16.0); Immature Granulocytes Auto 0.03 Thou/mm3 (0.00-0.00); Lymphocytes # (Auto) 1.2 Thou/mm3 (1.0-4.8); Lymphocytes % (Auto) 19 % (10-50); Mean Corpuscular HGB Conc 32.7 g/dl (31.0-37.0); Mean Corpuscular Hemoglobin 30.7 pg (25.0-35.0); Mean Corpuscular Volume 94 fL (80-100); Monocytes # (Auto) 0.4 Thou/mm3 (0.0-0.8); Monocytes % (Auto) 6 % (0-12); Neutrophils # (Auto) 4.3 Thou/mm3 (1.8-7.7); Neutrophils % (Auto) 71 % (37-80); Nucleated Red Blood Cell # 0.00 Thou/mm3 (0.00-0.00); Nucleated Red Blood Cell % 0 /100 WBC (0); Platelet Count 303 Thou/mm3 (140-440); RDW Standard Deviation 46.0 fL (36.4-46.3); Red Blood Count 3.36 Miln/mm3 (4.00-5.20); White Blood Count 6.0 Thou/mm3 (3.6-11.0)
[2024-12-01 09:33] LABS: Glucose Estimated Average 111 mg/dL (80-131); Hemoglobin A1C 5.5 % Hgb (4.8-6.0)
[2024-12-01 09:39] LABS: INR 1.0 (0.9-1.3); Partial Thromboplastin Time 24.5 Seconds (22.0-36.0); Prothrombin Time 10.5 Seconds (9.0-12.2)
[2024-12-01 09:54] LABS: Alanine Aminotransferase 11 U/L (10-49); Albumin, Serum 4.4 gm/dL (3.4-4.8); Albumin/Globulin Ratio 1.8 (1.2-2.2); Alkaline Phosphatase 68 U/L (46-116); Anion Gap 10 (7-16); Aspartate Amino Transferase 19 U/L (0-34); BUN/Creatinine Ratio 26 Ratio (12-20); Bilirubin,Total 0.5 mg/dL (0.3-1.2); Blood Urea Nitrogen 18 mg/dL (9-23); Calcium 9.5 mg/dL (8.3-10.6); Calcium (Corrected) 9.5 mg/dL (8.5-10.1); Carbon Dioxide 27.2 mMol/L (20.0-31.0); Chloride 102 mMol/L (98-107); Creatinine (Component) 0.7 mg/dL (0.6-1.3); Globulin 2.5 gm/dL (2.3-3.5); Glucose 104 mg/dL (74-106); Osmolality,Calculated 279 (275-295); Potassium 4.6 mMol/L (3.4-5.1); Sodium 139 mMol/L (136-145); Total Protein 6.9 gm/dL (5.7-8.2); eGFR > 60 See Note
== END | disposition home or self-care (01) ==
PROVIDERS: PCP Internal Medicine; Referring Provider Internal Medicine; Visit Provider Internal Medicine
DX: I10 Essential (primary) hypertension (principal); R73.03 Prediabetes; M25.561 Pain in right knee
CPT/HCPCS: 36415; 80053; 83036; 85025; 85610; 85730; 93005

== ENCOUNTER 2025-02-01 09:52 | Outpatient (AMB) | payer OTHER, MEDICAID, SELFPAY ==
[2025-02-01 10:01] VITALS: BP 165/62; PULSE 59; RESP 18; TEMP 36.2; O2SAT 96
--- NOTE | 2025-02-01 10:01 | ORTHONT_ITS ---
Vital signs 02/01/25 10:01 Height 1.52 m Height Method Stated Weight 69.4 kg Weight Measurement Method Standing Scale BMI 30.0 BP 165/62 H Blood Pressure Source Automatic Cuff Blood Pressure Location Left Upper Arm Position Sitting Respiration 18 Pulse 59 L Pulse Source Monitor Temp 97.1 F Temp Source Temporal Artery Scan Pulse Oximetry (%) 96 Oxygen Delivery Method Room Air Med/Allergies Allergies & Medications Allergies No Known Allergies Allergy (Verified 02/01/25 10:02) Medication Reconciliation chlorthalidone 25 mg tablet 25 mg PO QDAY 12/12/23 [History Confirmed 02/01/25] duloxetine 20 mg capsule,delayed release 20 mg PO HS 12/12/23 [History Confirmed 02/01/25] lisinopril 30 mg tablet 30 mg PO BID 12/12/23 [History Confirmed 02/01/25] metoprolol succinate 50 mg tablet,extended release 24 hr 50 mg PO QDAY Hypertension 12/12/23 [History Confirmed 02/01/25] aspirin 81 mg tablet 81 mg PO QDAY 03/04/24 [History Confirmed 02/01/25] acetaminophen 500 mg tablet (Acetaminophen Extra Strength) 1,000 mg (2 x 500 mg) PO Q6H PRN pain #90 tabs 10/11/24 [Rx Confirmed 02/01/25] aspirin 81 mg tablet,delayed release 81 mg PO BID #60 tabs 10/11/24 [Rx Confirmed 02/01/25] doxycycline hyclate 100 mg tablet 100 mg PO BID #14 tabs 10/11/24 [Rx Confirmed 02/01/25] gabapentin 300 mg capsule 300 mg PO .qhs #30 caps 10/11/24 [Rx Confirmed 02/01/25] sennosides 8.6 mg-docusate sodium 50 mg tablet (Senna-S) 1 tab-cap PO QDAY #30 tabs 10/11/24 [Rx Confirmed 02/01/25] ondansetron 4 mg disintegrating tablet 4 mg PO Q6H PRN nausea and vomiting #10 tabs 10/14/24 [Rx Confirmed 02/01/25] oxycodone 5 mg tablet 5 mg PO Q6H PRN pain #28 tabs 10/21/24 [Rx Confirmed 02/01/25] oxycodone 5 mg tablet 5 mg PO Q6H PRN pain #28 tabs 11/03/24 [Rx Confirmed 02/01/25] Exam Exam Patient is in no acute distress and is cooperative with the examination today. Breathing is nonlabored. In no respiratory distress. Bilateral extremities were evaluated and demonstrates sensation intact to light touch. Palpable pedal pulses are present. No significant edema is present. Bilateral hips were examined. The patient has no pain with log roll of the hips. Internal rotation to 30 degrees and external rotation to 30 degrees is painless. Negative FADIR. The left knee was examined. The left knee is in varus alignment. Range of motion from 0-115 degrees. Knee is stable to varus and valgus as well as AP translation with <5mm. Patient has a negative McMurrays. There is no pain with patellofemoral compression and no crepitus noted. The knee is tender to palpation medially. Right knee incision is clean dry and intact. Range of motion is She is walking without any assistive device. The last x-rays demonstrates a total knee replacement good alignment position. We will get new x-rays today Assessment and Plan Problem List (1) Spinal stenosis: Status: Acute (2) Bilateral primary osteoarthritis of knee: Status: Acute Plan: Patient is a pleasant 84-year-old female with bilateral knee pain and bilateral knee arthritis. She is s/p R TKA and is doing well but had a recent increase in pain after physical therapy. We will get new x-rays today Advanced Care Planning Discussion Advance care planning discussed with:: patient and child Office Procedures GNS Level of Care Nursing/Assessment Patient Status: Established Patient Nursing Assessment/Reassesment: Medication Reconciliation, Update PMH in EMR and Vital Signs Coordination of Care: Complex Care and Chronic Disease 1-5, Education Complex Pt/Fam, Consent,records obtained, informed consent, Results/Orders obtained and Staff clarify orders Established Patient Charge Established Patient Point Assignment: 95 Established Patient Point Charge: EP Level 3 (80-115) MA Intake Visit Data Collection New Patient or Established: Established Patient (seen at [facility] within 3 years) Reason for Visit:: R TKA/XRAY RESULTS Seen by Clinical Staff ONLY (RN/MA): No PCP or OBGYN visit in last 3 months: Yes Hx Now: No Do You Feel Safe at Home: Yes Authorities Contacted: N/A Questionairres Past Medical History Past Medical History Have you ever been diagnosed with any of the following: Neurological Problems Cerebrovascular Accident (CVA): Yes (2021) Transient Ischemic Attacks (TIA): Yes (2021) Seizures: No Cardiology Problems Congestive Heart Failure: No Edema: No Hypertension: Yes Varicose Veins: Yes Respiratory Problems Chronic Obstructive Pulmonary Disease (COPD): No Smoking: No Smoking Cessation Counseling: No Smoking Exposure: No Tobacco Use: No Stomache/Intestinal Problems Hepatitis: No Gall Bladder Disease: Yes Gastroesophageal Reflux Disease: Yes Genital/Urinary Problems Renal Disease: No Reproductive Problems Breast Cancer: Yes (RIGHT RADICAL MASTECTOMY) Previous Pregnancies: Yes (X7) Musculoskeletal Problems Arthritis: Yes Head,Eye,Nose,Throat Problems Cataracts: Yes (stephan) Endocrine Problems Diabetes Mellitus Type 1: No Diabetes Mellitus Type 2: No Psychologic Problems Depression: Yes Other Problems Hospitalization: Yes Shingles: No Falls: Yes Blood Transfusions: No Blood Transfusion Reaction: No Anesthesia Reactions: No Organ Transplant: No Chemotherapy: Yes (1986) MRSA: No Chicken Pox: Yes Measles: Yes Cancer: Yes Surgical History Total Knee Replacement: Yes Hysterectomy: Yes Subjective Visit Visit for: follow up visit, post op #2, knee and x-rays Immunization / Flu Flu Vaccine in the Last 12 Months: No Flu Vaccine Exclusion Criteria: No Exclusion Criteria History of Present Illness Chief complaint: XRAY RESULTS/RIGHT TKA Date of 1st surgery (if applicable): 10/11/2024 Patient is a 83-year-old female with bilateral knee pain worse on the right. She is 4 months status post right total knee replacement. She still reports that she has a pain primarily in the lateral aspect of her knee. Discussed this is likely postoperative. Will get new x-rays Personal History Occupation: RETIRED Additional comments: SINCE LAST VISIT PATIENT HAS FALLEN THREE TIMES Pain Pain level (0-10): 7 Pain duration: CONSTANT Pain location: inside (medial), anterior and posterior Pain quality: sharp, dull and aching Pain timing: night Associated signs & symptoms: numbness Ambulatory data Ambulatory device: walker Treatments Improvement with previous injections: No Improvement with PT: No Improvement with NSAIDS: no Review of Systems Review of Systems: All systems negative unless otherwise noted in HPI.
--- NOTE | 2025-02-01 10:05 | XR_ITS ---
Examination: Bilateral AP knees single view Right knee PA lateral axial 3 views TECHNIQUE: Bilateral AP knees standing single view Right knee PA flexion standing, standing lateral, axial right knee 3 views total 4 views Date and time: February 01, 2025 1018 hours INDICATIONS: Knee pain, chronic FINDINGS: Prominent osteopenia. Total right knee arthroplasty. Satisfactory alignment. No loosening of the prosthetic components Moderate narrowing medial joint space left knee IMPRESSION: Moderate narrowing medial joint space left knee Total right knee arthroplasty with satisfactory alignment.
== END 2025-02-01 10:07 | disposition home or self-care (01) ==
PROVIDERS: PCP Internal Medicine; Referring Provider Internal Medicine; Supervising Provider Orthopaedic Surgery Adult Reconstructive Orthopaedic Surgery; Visit Provider Orthopaedic Surgery Adult Reconstructive Orthopaedic Surgery
DX: M17.0 Bilateral primary osteoarthritis of knee (principal); M25.562 Pain in left knee; M25.561 Pain in right knee; M48.00 Spinal stenosis, site unspecified; Z96.651 Presence of right artificial knee joint; I10 Essential (primary) hypertension; K21.9 Gastro-esophageal reflux disease without esophagitis
CPT/HCPCS: 73564; 99213; G0463

== ENCOUNTER → 2025-04-08 | Outpatient (CLI) | payer OTHER, MEDICAID, SELFPAY ==
[2025-04-08 09:17] LABS: Collection Type, Urine Clean Catch
[2025-04-08 09:42] LABS: Basophils # (Auto) 0.0 Thou/mm3 (0.0-0.2); Basophils % (Auto) 0 % (0-2.5); Eosinophils # (Auto) 0.1 Thou/mm3 (0.0-0.5); Eosinophils % (Auto) 3 % (0-10); Hematocrit 31.9 % (36.0-46.0); Hemoglobin 10.5 g/dL (12.0-16.0); Immature Granulocytes Auto 0.01 Thou/mm3 (0.00-0.00); Lymphocytes # (Auto) 1.1 Thou/mm3 (1.0-4.8); Lymphocytes % (Auto) 21 % (10-50); Mean Corpuscular HGB Conc 32.9 g/dl (31.0-37.0); Mean Corpuscular Hemoglobin 29.5 pg (25.0-35.0); Mean Corpuscular Volume 90 fL (80-100); Monocytes # (Auto) 0.4 Thou/mm3 (0.0-0.8); Monocytes % (Auto) 7 % (0-12); Neutrophils # (Auto) 3.5 Thou/mm3 (1.8-7.7); Neutrophils % (Auto) 69 % (37-80); Nucleated Red Blood Cell # 0.00 Thou/mm3 (0.00-0.00); Nucleated Red Blood Cell % 0 /100 WBC (0); Platelet Count 272 Thou/mm3 (140-440); RDW Standard Deviation 42.0 fL (36.4-46.3); Red Blood Count 3.56 Miln/mm3 (4.00-5.20); White Blood Count 5.1 Thou/mm3 (3.6-11.0)
[2025-04-08 09:44] LABS: Bilirubin,Urine Negative (Negative); Blood,Urine Negative (Negative); Clarity,Urine Clear (Clear/Hazy); Color,Urine Lt-Yellow (Lt Yel-Yel); Glucose, Urine Negative (Negative); Ketones,Urine Negative (Negative); Leukocyte Esterase,Urine Positive (Negative); Nitrite,Urine Negative (Negative); PH,Urine 6.5 (5.0-7.0); Protein,Urine Negative (Neg - Trace); RBC,Urine 1 /hpf (0-3); Specific Gravity,Urine 1.014 (1.001-1.035); Squamous Epithelial Cell,Urine < 1 /hpf (0-5); Urobilinogen,Urine Negative mg/dL (0.0-1.0); WBC,Urine 1 /hpf (0-5)
[2025-04-08 09:47] LABS: Glucose Estimated Average 128 mg/dL (80-131); Hemoglobin A1C 6.1 % Hgb (4.8-6.0)
[2025-04-08 09:58] LABS: Vitamin B12 329 pg/mL (211-911); Vitamin D 25 Hydroxy Total 34.3 ng/mL (7.3-40.2)
[2025-04-08 10:11] LABS: Alanine Aminotransferase 9 U/L (10-49); Albumin, Serum 4.6 gm/dL (3.4-4.8); Albumin/Globulin Ratio 2.2 (1.2-2.2); Alkaline Phosphatase 78 U/L (46-116); Anion Gap 9 (7-16); Aspartate Amino Transferase 18 U/L (0-34); BUN/Creatinine Ratio 33 Ratio (12-20); Bilirubin,Total 0.6 mg/dL (0.3-1.2); Blood Urea Nitrogen 23 mg/dL (9-23); Calcium 9.4 mg/dL (8.3-10.6); Calcium (Corrected) 9.4 mg/dL (8.5-10.1); Carbon Dioxide 27.3 mMol/L (20.0-31.0); Cardiac Risk Estimate 2.5 RATIO (3.7-5.6); Chloride 104 mMol/L (98-107); Cholesterol 172 mg/dL (132-200); Creatinine (Component) 0.7 mg/dL (0.6-1.3); Globulin 2.1 gm/dL (2.3-3.5); Glucose 97 mg/dL (74-106); HDL Cholesterol 69 mg/dL (40-60); LDL Cholesterol,Calculated 86 mg/dL (0-130); Osmolality,Calculated 283 (275-295); Potassium 5.0 mMol/L (3.4-5.1); Sodium 140 mMol/L (136-145); Thyroid Stimulating Hormone 2.68 uIU/mL (0.55-4.78); Total Protein 6.7 gm/dL (5.7-8.2); Triglycerides 83 mg/dL (30-150); Uric Acid 4.9 mg/dL (3.1-7.8); eGFR > 60 See Note
== END | disposition home or self-care (01) ==
LOC: COPL 08:01
PROVIDERS: PCP Internal Medicine; Referring Provider Internal Medicine; Visit Provider Internal Medicine
DX: Z00.00 Encounter for general adult medical examination without abnormal findings (principal); I10 Essential (primary) hypertension
CPT/HCPCS: 36415; 80053; 80061; 81001; 82306; 82607; 83036; 84443; 84550; 85025

== ENCOUNTER 2025-05-10 09:06 | Outpatient (AMB) | payer OTHER, MEDICAID, SELFPAY ==
[2025-05-10 09:16] VITALS: BP 167/70; PULSE 59; RESP 18; TEMP 36.2; O2SAT 98; BMI 30.3
--- NOTE | 2025-05-10 09:16 | ORTHONT_ITS ---
Vital signs 05/10/25 09:16 Height 1.52 m Height Method Stated Weight 70.052 kg Weight Measurement Method Standing Scale BMI 30.3 BP 167/70 H Blood Pressure Source Automatic Cuff Blood Pressure Location Left Upper Arm Position Sitting Respiration 18 Pulse 59 L Pulse Source Monitor Temp 97.1 F Temp Source Temporal Artery Scan Pulse Oximetry (%) 98 Oxygen Delivery Method Room Air Med/Allergies Allergies & Medications Allergies No Known Allergies Allergy (Verified 05/10/25 09:17) Medication Reconciliation chlorthalidone 25 mg tablet 25 mg PO QDAY 12/12/23 [History Confirmed 05/10/25] duloxetine 20 mg capsule,delayed release 20 mg PO HS 12/12/23 [History Confirmed 05/10/25] lisinopril 30 mg tablet 30 mg PO BID 12/12/23 [History Confirmed 05/10/25] metoprolol succinate 50 mg tablet,extended release 24 hr 50 mg PO QDAY Hypertension 12/12/23 [History Confirmed 05/10/25] aspirin 81 mg tablet 81 mg PO QDAY 03/04/24 [History Confirmed 05/10/25] acetaminophen 500 mg tablet (Acetaminophen Extra Strength) 1,000 mg (2 x 500 mg) PO Q6H PRN pain #90 tabs 10/11/24 [Rx Confirmed 05/10/25] aspirin 81 mg tablet,delayed release 81 mg PO BID #60 tabs 10/11/24 [Rx Confirmed 05/10/25] doxycycline hyclate 100 mg tablet 100 mg PO BID #14 tabs 10/11/24 [Rx Confirmed 05/10/25] gabapentin 300 mg capsule 300 mg PO .qhs #30 caps 10/11/24 [Rx Confirmed 05/10/25] sennosides 8.6 mg-docusate sodium 50 mg tablet (Senna-S) 1 tab-cap PO QDAY #30 tabs 10/11/24 [Rx Confirmed 05/10/25] ondansetron 4 mg disintegrating tablet 4 mg PO Q6H PRN nausea and vomiting #10 tabs 10/14/24 [Rx Confirmed 05/10/25] oxycodone 5 mg tablet 5 mg PO Q6H PRN pain #28 tabs 10/21/24 [Rx Confirmed 05/10/25] oxycodone 5 mg tablet 5 mg PO Q6H PRN pain #28 tabs 11/03/24 [Rx Confirmed 05/10/25] Exam Exam Patient is in no acute distress and is cooperative with the examination today. Breathing is nonlabored. In no respiratory distress. Bilateral extremities were evaluated and demonstrates sensation intact to light touch. Palpable pedal pulses are present. No significant edema is present. Bilateral hips were examined. The patient has no pain with log roll of the hips. Internal rotation to 30 degrees and external rotation to 30 degrees is painless. Negative FADIR. The left knee was examined. The left knee is in varus alignment. Range of motion from 0-115 degrees. Knee is stable to varus and valgus as well as AP translation with <5mm. Patient has a negative Mc[place]rays. There is no pain with patellofemoral compression and no crepitus noted. The knee is tender to palpation medially. Right knee incision is clean dry and intact. Range of motion is She is walking without any assistive device. The last x-rays demonstrates a total knee replacement good alignment position. Assessment and Plan Problem List (1) Spinal stenosis: Status: Acute (2) Bilateral primary osteoarthritis of knee: Status: Acute Plan: Patient is a pleasant 84-year-old female with bilateral knee pain and bilateral knee arthritis. She is s/p R TKA and is doing well but had a recent increase in pain after physical therapy. We will get new x-rays today Advanced Care Planning Discussion Advance care planning discussed with:: patient and child Office Procedures GNS Level of Care Nursing/Assessment Patient Status: Established Patient Nursing Assessment/Reassesment: Medication Reconciliation, Update PMH in EMR and Vital Signs Coordination of Care: Complex Care and Chronic Disease 1-5, Education Complex Pt/Fam, Consent,records obtained, informed consent, Results/Orders obtained and Staff clarify orders Established Patient Charge Established Patient Point Assignment: 95 Established Patient Point Charge: EP Level 3 (80-115) MA Intake Visit Data Collection New Patient or Established: Established Patient (seen at [facility] within 3 years) Reason for Visit:: R TKA/XRAY RESULTS Seen by Clinical Staff ONLY (RN/MA): No PCP or OBGYN visit in last 3 months: Yes Hx Now: No Do You Feel Safe at Home: Yes Authorities Contacted: N/A Questionairres Past Medical History Past Medical History Have you ever been diagnosed with any of the following: Neurological Problems Cerebrovascular Accident (CVA): Yes (2021) Transient Ischemic Attacks (TIA): Yes (2021) Seizures: No Cardiology Problems Congestive Heart Failure: No Edema: No Hypertension: Yes Varicose Veins: Yes Respiratory Problems Chronic Obstructive Pulmonary Disease (COPD): No Smoking: No Smoking Cessation Counseling: No Smoking Exposure: No Tobacco Use: No Stomache/Intestinal Problems Hepatitis: No Gall Bladder Disease: Yes Gastroesophageal Reflux Disease: Yes Genital/Urinary Problems Renal Disease: No Reproductive Problems Breast Cancer: Yes (RIGHT RADICAL MASTECTOMY) Previous Pregnancies: Yes (X7) Musculoskeletal Problems Arthritis: Yes Head,Eye,Nose,Throat Problems Cataracts: Yes (stephan) Endocrine Problems Diabetes Mellitus Type 1: No Diabetes Mellitus Type 2: No Psychologic Problems Depression: Yes Other Problems Hospitalization: Yes Shingles: No Falls: Yes Blood Transfusions: No Blood Transfusion Reaction: No Anesthesia Reactions: No Organ Transplant: No Chemotherapy: Yes (1986) MRSA: No Chicken Pox: Yes Measles: Yes Cancer: Yes Surgical History Total Knee Replacement: Yes Hysterectomy: Yes Subjective Visit Visit for: follow up visit, post op #2, knee and x-rays Immunization / Flu Flu Vaccine in the Last 12 Months: No Flu Vaccine Exclusion Criteria: No Exclusion Criteria History of Present Illness Chief complaint: XRAY RESULTS/RIGHT TKA Date of 1st surgery (if applicable): 10/11/2024 Patient is a 84-year-old female with bilateral knee pain worse on the right. She is 6 months status post right total knee replacement. She still reports that she has a pain primarily in the lateral aspect of her knee. The pain continues to improve Personal History Occupation: RETIRED Additional comments: SINCE LAST VISIT PATIENT HAS FALLEN THREE TIMES Pain Pain level (0-10): 7 Pain duration: CONSTANT Pain location: inside (medial), anterior and posterior Pain quality: sharp, dull and aching Pain timing: night Associated signs & symptoms: numbness Ambulatory data Ambulatory device: walker Treatments Improvement with previous injections: No Improvement with PT: No Improvement with NSAIDS: no Review of Systems Review of Systems: All systems negative unless otherwise noted in HPI.
== END 2025-05-10 09:31 | disposition home or self-care (01) ==
LOC: HODSRG 09:06
PROVIDERS: PCP Internal Medicine; Referring Provider Internal Medicine; Supervising Provider Orthopaedic Surgery Adult Reconstructive Orthopaedic Surgery; Visit Provider Orthopaedic Surgery Adult Reconstructive Orthopaedic Surgery
DX: M48.00 Spinal stenosis, site unspecified (principal); M17.0 Bilateral primary osteoarthritis of knee; Z96.651 Presence of right artificial knee joint
CPT/HCPCS: 99213; G0463